=== PATIENT | male | born 1970 | race Caucasian/White ===

== ENCOUNTER 2021-10-09 19:23 | Emergency (ER) | payer OTHER ==
[~2021-10-09] VITALS: Ht 188 cm; Wt 99.8 kg
[2021-10-09] MEDS ORDERED: SERTRALINE HCL25 M1 PO (19:40)
[2021-10-09] MEDS ORDERED: ZESTRIL20 MG PO (19:40)
[2021-10-09] MEDS ORDERED: HYDROCODON-ACE1 EAC8 PO (20:50)
[2021-10-09 21:14] VITALS: BP 178/98
--- NOTE | 2021-10-10 10:35 | EKG ---
[place] [address] ELECTROCARDIOGRAM REPORT Name: JIN RICARDO [id number] Admission: 10/09/21 Attend Phys: Discharge: 10/09/21 Date of : 70 Date of Service: 10/09/211941 Report #: [id number] THIS REPORT FOR: //name// [facility] ED Test Date: 2021-10-09 Test Time: 19:42:45 Pat Name: JIN RICARDO Department: Room: Gender: Nurse Orthopedic: [facility] : 1970 Requested By: Sameer Becker Order Number: [id number] MD: Joseluis Chavez Measurements Intervals [place] Rate: 69 P: 66 ND: 144 QRS: 41 QRSD: 108 T: 74 QT: 432 QTc: 463 Interpretive Statements Sinus rhythm artifact noted Nonspecific T abnormalities, lateral leads ST elev, probable normal early repol pattern No previous ECG available for comparison Electronically Signed On 10-10-2021 10:35:31 DELIVERY ASSOCIATE by Joseluis Chavez [email or web address] <ELECTRONICALLY SIGNED> By: Joseluis Chavez MD, [facility] 10/10/21 1035 41 41 Joseluis Chavez MD, [facility] /EPI
== END 2021-10-09 21:14 | disposition home or self-care (01) ==
LOC: M.ERS 19:23
DX: S20.212A Contusion of left front wall of thorax, initial encounter (principal); I10 Essential (primary) hypertension; E78.5 Hyperlipidemia, unspecified; Z90.49 Acquired absence of other specified parts of digestive tract; Z79.899 Other long term (current) drug therapy; W19.XXXA Unspecified fall, initial encounter; Y93.89 Activity, other specified; Y92.89 Other specified places as the place of occurrence of the external cause; Y99.8 Other external cause status